=== PATIENT | male | born 1940 | race Caucasian/White ===

== ENCOUNTER 2023-06-13 15:13 | Inpatient (IN) | payer BC, MEDICARE, OTHER ==
[2023-06-13] MEDS: Sodium Chloride 0.9% 10 ML Syringe FLUSH PRN (16:07)
[2023-06-13 16:08] LABS: BASOPHILS ABSOLUTE AUTO 0.1 K/mm3 (0.0-0.2); BASOPHILS PERCENT AUTO 0.7 % (0.0-1.0); EOSINOPHILS ABSOLUTE AUTO 0.3 K/mm3 (0.0-0.4); EOSINOPHILS PERCENT AUTO 4.4 % (0.0-6.0); HEMOGLOBIN 12.1 gm/dl (14.0-18.0); IMMATURE GRAN ABSOLUTE AUTO 0.02 K/mm3 (0.00-0.05); IMMATURE GRAN PERCENT AUTO 0.3 % (0.0-0.4); LYMPHOCYTES ABSOLUTE AUTO 1.7 K/mm3 (1.0-4.8); LYMPHOCYTES PERCENT AUTO 22.5 % (24.0-44.0); MEAN CORPUSCULAR HEMOGLOBIN 30.7 pg (28.0-32.0); MEAN CORPUSCULAR HGB CONC 31.8 g/dl (32.0-36.0); MEAN CORPUSCULAR VOLUME 96.4 fl (83.0-99.0); MEAN PLATELET VOLUME 10.6 fl (9.4-12.4); MONOCYTES ABSOLUTE AUTO 0.9 K/mm3 (0.0-0.8); MONOCYTES PERCENT AUTO 12.3 % (0.0-8.0); NEUTROPHILS ABSOLUTE AUTO 4.5 K/mm3 (1.8-7.7); NEUTROPHILS PERCENT AUTO 59.8 % (41.0-71.0); PLATELET COUNT,PLT 206 K/mm3 (150-400); RED BLOOD CELL COUNT 3.94 M/mm3 (4.52-5.90); WHITE BLOOD CELL COUNT,WBC 7.56 K/mm3 (3.9-11.3)
[2023-06-13 16:40] LABS: A/G RATIO 0.5 (1-2); ALBUMIN 1.8 g/dl (3.4-5.0); ANION GAP 16.9 (5-15); BILIRUBIN TOTAL 0.5 mg/dL (0.2-1.0); BUN/CREATININE RATIO 9.2 (14-18); CALCIUM 8.1 mg/dL (8.5-10.1); CREATININE 3.7 mg/dL (0.7-1.3); EST CRCL DRUG DOSING (CG) 15.35 mL/min; POTASSIUM,K 4.9 mEq/L (3.5-5.1); PROTEIN TOTAL,TP 5.5 g/dl (6.4-8.2)
[2023-06-13] MEDS ORDERED: Sodium Chloride 0.9% 10 ML Syringe FLUSH PRN (17:31)
[2023-06-13] MEDS ORDERED: oxyCODONE 5 MG Tab PO PRN (17:31)
[2023-06-13] MEDS ORDERED: Acetaminophen 325 MG Tab PO PRN (17:31)
[2023-06-13] MEDS: Insulin Regular, Human 100 Units/ML 3 ML Vial SUBCUT SCH (18:17)
[2023-06-13] MEDS: Heparin Sodium 5,000 Units/ML Vial SUBCUT SCH (21:01)
[2023-06-13] MEDS: Furosemide 20 MG/2 ML VIAL IVPUSH ONE (22:31)
[2023-06-14 00:50] LABS: APPEARANCE,URINE CLEAR (Clear); BILIRUBIN,URINE NEGATIVE (Negative); COLOR,URINE YELLOW (Yellow); GLUCOSE,URINE TRACE (Negative); KETONES,URINE NEGATIVE (Negative); LEUKOCYTE ESTERASE,URINE NEGATIVE (Negative); NITRITE,URINE NEGATIVE (Negative); OCCULT BLOOD,URINE 2+ (Negative); PROTEIN,URINE 3+ (Negative); UROBILINOGEN,URINE 0.2 (0.2-1.0)
[2023-06-14 01:54] LABS: AMORPHOUS SEDIMENT,URINE FEW /hpf (NOT SEEN); BACTERIA,URINE MODERATE /hpf (FEW); EPITHELIAL CELLS,URINE 0-5 /hpf (0-5); FINE GRANULAR CASTS,URINE 0-5 /lpf (0-5); HYALINE CASTS,URINE 0-5 /lpf (0-5); MUCUS,URINE RARE /hpf (FEW); RBC,URINE 0-5 /hpf (0-5)
[2023-06-14 05:39] LABS: BASOPHILS PERCENT AUTO 0.5 % (0.0-1.0); EOSINOPHILS ABSOLUTE AUTO 0.5 K/mm3 (0.0-0.4); EOSINOPHILS PERCENT AUTO 6.4 % (0.0-6.0); HEMATOCRIT 37.3 % (42.0-52.0); HEMOGLOBIN 11.8 gm/dl (14.0-18.0); IMMATURE GRAN ABSOLUTE AUTO 0.03 K/mm3 (0.00-0.05); IMMATURE GRAN PERCENT AUTO 0.4 % (0.0-0.4); LYMPHOCYTES ABSOLUTE AUTO 2.1 K/mm3 (1.0-4.8); LYMPHOCYTES PERCENT AUTO 27.2 % (24.0-44.0); MEAN CORPUSCULAR HEMOGLOBIN 30.2 pg (28.0-32.0); MEAN CORPUSCULAR HGB CONC 31.6 g/dl (32.0-36.0); MEAN CORPUSCULAR VOLUME 95.4 fl (83.0-99.0); MEAN PLATELET VOLUME 10.9 fl (9.4-12.4); NEUTROPHILS PERCENT AUTO 52.5 % (41.0-71.0); PLATELET COUNT,PLT 189 K/mm3 (150-400); RED BLOOD CELL COUNT 3.91 M/mm3 (4.52-5.90); WHITE BLOOD CELL COUNT,WBC 7.61 K/mm3 (3.9-11.3)
[2023-06-14 05:56] LABS: A/G RATIO 0.5 (1-2); ALBUMIN 1.7 g/dl (3.4-5.0); ANION GAP 16.3 (5-15); BILIRUBIN TOTAL 0.5 mg/dL (0.2-1.0); BUN/CREATININE RATIO 10.3 (14-18); CREATININE 3.4 mg/dL (0.7-1.3); EST CRCL DRUG DOSING (CG) 16.7 mL/min; POTASSIUM,K 4.3 mEq/L (3.5-5.1); PROTEIN TOTAL,TP 5.5 g/dl (6.4-8.2)
[2023-06-14] MEDS: Torsemide 20 MG Tab PO SCH (08:32)
[2023-06-14] MEDS: Losartan 25 MG Tab PO SCH (08:33)
[2023-06-14] MEDS: amLODIPine 10 MG Tab PO SCH (08:33)
[2023-06-14] MEDS: Aspirin 81 MG Tab.EC PO SCH (08:34)
[2023-06-14] MEDS: Bumetanide 1 MG/4 ML MDV IVPUSH ONE (10:47)
[2023-06-14] MEDS: Bumetanide 1 MG/4 ML MDV IVPUSH SCH (15:09)
[2023-06-14] MEDS: GLIPIZIDE 10 MG PO SCH (16:02)
[2023-06-14] MEDS: guaiFENesin/Dextromethorphan 100-10 MG/5 ML Soln 5 ML Cup PO PRN (21:34)
[2023-06-15] MEDS: Benzocaine/Cetylpyridinium/Menthol Lozenge MUCMEM PRN (00:22)
[2023-06-15 05:53] LABS: BASOPHILS PERCENT AUTO 0.5 % (0.0-1.0); EOSINOPHILS ABSOLUTE AUTO 0.4 K/mm3 (0.0-0.4); EOSINOPHILS PERCENT AUTO 5.5 % (0.0-6.0); HEMATOCRIT 36.6 % (42.0-52.0); HEMOGLOBIN 11.6 gm/dl (14.0-18.0); IMMATURE GRAN ABSOLUTE AUTO 0.03 K/mm3 (0.00-0.05); IMMATURE GRAN PERCENT AUTO 0.4 % (0.0-0.4); LYMPHOCYTES ABSOLUTE AUTO 1.5 K/mm3 (1.0-4.8); LYMPHOCYTES PERCENT AUTO 20.1 % (24.0-44.0); MEAN CORPUSCULAR HEMOGLOBIN 30.3 pg (28.0-32.0); MEAN CORPUSCULAR HGB CONC 31.7 g/dl (32.0-36.0); MEAN CORPUSCULAR VOLUME 95.6 fl (83.0-99.0); MONOCYTES ABSOLUTE AUTO 0.9 K/mm3 (0.0-0.8); MONOCYTES PERCENT AUTO 11.4 % (0.0-8.0); NEUTROPHILS ABSOLUTE AUTO 4.7 K/mm3 (1.8-7.7); NEUTROPHILS PERCENT AUTO 62.1 % (41.0-71.0); PLATELET COUNT,PLT 177 K/mm3 (150-400); RED BLOOD CELL COUNT 3.83 M/mm3 (4.52-5.90); WHITE BLOOD CELL COUNT,WBC 7.48 K/mm3 (3.9-11.3)
[2023-06-15 06:08] LABS: A/G RATIO 0.4 (1-2); ALBUMIN 1.6 g/dl (3.4-5.0); ANION GAP 14.5 (5-15); BILIRUBIN TOTAL 0.5 mg/dL (0.2-1.0); CREATININE 3.4 mg/dL (0.7-1.3); EST CRCL DRUG DOSING (CG) 16.7 mL/min; POTASSIUM,K 4.5 mEq/L (3.5-5.1); PROTEIN TOTAL,TP 5.2 g/dl (6.4-8.2)
[2023-06-15] MEDS: Bumetanide 1 MG/4 ML MDV IVPUSH SCH ×2 (06:22→14:30)
[2023-06-16 05:58] LABS: A/G RATIO 0.5 (1-2); ALBUMIN 1.7 g/dl (3.4-5.0); ANION GAP 12.4 (5-15); BILIRUBIN TOTAL 0.6 mg/dL (0.2-1.0); CALCIUM 8.3 mg/dL (8.5-10.1); CREATININE 3.4 mg/dL (0.7-1.3); EST CRCL DRUG DOSING (CG) 16.7 mL/min; MAGNESIUM 1.8 mg/dL (1.8-2.4); POTASSIUM,K 4.4 mEq/L (3.5-5.1); PROTEIN TOTAL,TP 5.3 g/dl (6.4-8.2)
[2023-06-16 06:02] LABS: BASOPHILS PERCENT AUTO 0.6 % (0.0-1.0); EOSINOPHILS ABSOLUTE AUTO 0.4 K/mm3 (0.0-0.4); EOSINOPHILS PERCENT AUTO 6.4 % (0.0-6.0); HEMATOCRIT 35.7 % (42.0-52.0); HEMOGLOBIN 11.5 gm/dl (14.0-18.0); IMMATURE GRAN ABSOLUTE AUTO 0.03 K/mm3 (0.00-0.05); IMMATURE GRAN PERCENT AUTO 0.5 % (0.0-0.4); LYMPHOCYTES ABSOLUTE AUTO 1.8 K/mm3 (1.0-4.8); LYMPHOCYTES PERCENT AUTO 28.7 % (24.0-44.0); MEAN CORPUSCULAR HEMOGLOBIN 30.7 pg (28.0-32.0); MEAN CORPUSCULAR HGB CONC 32.2 g/dl (32.0-36.0); MEAN CORPUSCULAR VOLUME 95.2 fl (83.0-99.0); MEAN PLATELET VOLUME 11.1 fl (9.4-12.4); MONOCYTES ABSOLUTE AUTO 0.9 K/mm3 (0.0-0.8); NEUTROPHILS ABSOLUTE AUTO 3.2 K/mm3 (1.8-7.7); NEUTROPHILS PERCENT AUTO 49.8 % (41.0-71.0); PLATELET COUNT,PLT 179 K/mm3 (150-400); RED BLOOD CELL COUNT 3.75 M/mm3 (4.52-5.90); WHITE BLOOD CELL COUNT,WBC 6.41 K/mm3 (3.9-11.3)
[2023-06-17 02:35] LABS: CREATININE,URINE RAND 46.1 mg/dL (30.0-125.0); MICROALBUMIN CREAT RATIO,UR 11732.9 mg/g (0-30); MICROALBUMIN,URINE RANDOM 5408.9 mg/L (1.3-20.0)
[2023-06-17 06:34] LABS: A/G RATIO 0.5 (1-2); ALBUMIN 1.8 g/dl (3.4-5.0); ANION GAP 14.1 (5-15); BILIRUBIN TOTAL 0.6 mg/dL (0.2-1.0); BUN/CREATININE RATIO 12.4 (14-18); CALCIUM 8.7 mg/dL (8.5-10.1); CREATININE 3.3 mg/dL (0.7-1.3); EST CRCL DRUG DOSING (CG) 17.21 mL/min; MAGNESIUM 1.9 mg/dL (1.8-2.4); POTASSIUM,K 4.1 mEq/L (3.5-5.1); PROTEIN TOTAL,TP 5.7 g/dl (6.4-8.2)
[2023-06-17 06:38] LABS: BASOPHILS ABSOLUTE AUTO 0.1 K/mm3 (0.0-0.2); BASOPHILS PERCENT AUTO 0.6 % (0.0-1.0); EOSINOPHILS ABSOLUTE AUTO 0.5 K/mm3 (0.0-0.4); HEMATOCRIT 38.8 % (42.0-52.0); HEMOGLOBIN 12.5 gm/dl (14.0-18.0); IMMATURE GRAN ABSOLUTE AUTO 0.02 K/mm3 (0.00-0.05); IMMATURE GRAN PERCENT AUTO 0.2 % (0.0-0.4); LYMPHOCYTES ABSOLUTE AUTO 2.1 K/mm3 (1.0-4.8); LYMPHOCYTES PERCENT AUTO 25.1 % (24.0-44.0); MEAN CORPUSCULAR HEMOGLOBIN 30.2 pg (28.0-32.0); MEAN CORPUSCULAR HGB CONC 32.2 g/dl (32.0-36.0); MEAN CORPUSCULAR VOLUME 93.7 fl (83.0-99.0); MEAN PLATELET VOLUME 11.4 fl (9.4-12.4); MONOCYTES ABSOLUTE AUTO 0.9 K/mm3 (0.0-0.8); NEUTROPHILS ABSOLUTE AUTO 4.8 K/mm3 (1.8-7.7); NEUTROPHILS PERCENT AUTO 57.1 % (41.0-71.0); PLATELET COUNT,PLT 228 K/mm3 (150-400); RED BLOOD CELL COUNT 4.14 M/mm3 (4.52-5.90); WHITE BLOOD CELL COUNT,WBC 8.35 K/mm3 (3.9-11.3)
[2023-06-17] MEDS: Bumetanide 1 MG Tab PO SCH ×2 (08:46→13:19)
[2023-06-17] MEDS: Multivitamins with Minerals/Folic Acid/Lutein/Zeaxanth Tab PO SCH (09:28)
[2023-06-17] MEDS: Polyethylene Glycol 3350 Powder 17 GM Packet PO PRN (09:28)
[2023-06-17] MEDS: Insulin Lispro 100 Unit/ML 3 ML KwikPen SUBCUT SCH (17:37)
[2023-06-17] MEDS: Rosuvastatin 10 MG Tab PO SCH (20:58)
[2023-06-17] MEDS: Docusate Sodium 100 MG Cap PO PRN (21:54)
[2023-06-18 07:11] LABS: A/G RATIO 0.5 (1-2); ALBUMIN 1.6 g/dl (3.4-5.0); ANION GAP 14.9 (5-15); BILIRUBIN TOTAL 0.4 mg/dL (0.2-1.0); BUN/CREATININE RATIO 11.1 (14-18); CALCIUM 8.3 mg/dL (8.5-10.1); CREATININE 3.7 mg/dL (0.7-1.3); EST CRCL DRUG DOSING (CG) 15.35 mL/min; MAGNESIUM 1.9 mg/dL (1.8-2.4); POTASSIUM,K 3.9 mEq/L (3.5-5.1); PROTEIN TOTAL,TP 5.1 g/dl (6.4-8.2)
[2023-06-18] MEDS ORDERED: Losartan 25 MG Tab PO SCH (09:00)
[2023-06-18] MEDS: Docusate Sodium 100 MG Cap PO SCH (10:56)
[2023-06-18] MEDS: Polyethylene Glycol 3350 Powder 17 GM Packet PO SCH (10:57)
== END 2023-06-18 12:36 | DRG 291 ==
LOC: JD.ED 15:13 → JD.MS 17:31
PROVIDERS: ADMIT Internal Medicine; ATTEND Internal Medicine
DX: I13.0 Hypertensive heart and chronic kidney disease with heart failure and stage 1 through stage 4 chronic kidney disease, or unspecified chronic kidney disease (principal); I50.9 Heart failure, unspecified; I50.33 Acute on chronic diastolic (congestive) heart failure; N18.4 Chronic kidney disease, stage 4 (severe); E11.22 Type 2 diabetes mellitus with diabetic chronic kidney disease; Z66 Do not resuscitate; E88.09 Other disorders of plasma-protein metabolism, not elsewhere classified; E66.9 Obesity, unspecified; E78.00 Pure hypercholesterolemia, unspecified; E11.21 Type 2 diabetes mellitus with diabetic nephropathy; M54.9 Dorsalgia, unspecified; G89.29 Other chronic pain; Z88.8 Allergy status to other drugs, medicaments and biological substances; Z79.4 Long term (current) use of insulin; Z79.84 Long term (current) use of oral hypoglycemic drugs; Z79.899 Other long term (current) drug therapy; Z68.33 Body mass index [BMI] 33.0-33.9, adult; Z79.82 Long term (current) use of aspirin; Z68.35 Body mass index [BMI] 35.0-35.9, adult; E78.5 Hyperlipidemia, unspecified
CPT/HCPCS: 36415; 71045; 80053; 81001; 83880; 84484; 85025; 93005; 99284; J3490; 82043; 82947; 83735; 93010; 93307; 97161-GP; 99285; A9270-GY; J1644; J1940

== ENCOUNTER 2024-07-23 10:30 | Emergency (ER) | payer OTHER ==
[2024-07-23] MEDS: Furosemide 100 MG/10 ML SDV IVPUSH ONE (11:08)
[2024-07-23 11:14] LABS: BASOPHILS ABSOLUTE AUTO 0.1 K/mm3 (0.0-0.2); BASOPHILS PERCENT AUTO 0.6 % (0.0-1.0); EOSINOPHILS PERCENT AUTO 0.3 % (0.0-6.0); HEMATOCRIT 32.8 % (42.0-52.0); IMMATURE GRAN ABSOLUTE AUTO 0.04 K/mm3 (0.00-0.05); IMMATURE GRAN PERCENT AUTO 0.4 % (0.0-0.4); LYMPHOCYTES ABSOLUTE AUTO 1.3 K/mm3 (1.0-4.8); MEAN CORPUSCULAR HEMOGLOBIN 31.3 pg (28.0-32.0); MEAN CORPUSCULAR HGB CONC 31.7 g/dl (32.0-36.0); MEAN PLATELET VOLUME 10.3 fl (9.4-12.4); MONOCYTES ABSOLUTE AUTO 0.9 K/mm3 (0.0-0.8); MONOCYTES PERCENT AUTO 9.8 % (0.0-8.0); NEUTROPHILS ABSOLUTE AUTO 6.7 K/mm3 (1.8-7.7); NEUTROPHILS PERCENT AUTO 74.9 % (41.0-71.0); RED BLOOD CELL COUNT 3.32 M/mm3 (4.52-5.90); WHITE BLOOD CELL COUNT,WBC 8.98 K/mm3 (3.9-11.3)
[2024-07-23 11:19] LABS: BASE EXCESS ARTERIAL -5.2 (-2-2.0); BICARBONATE,ARTERIAL 18.4 meq/L (22.0-26.0); O2 SATURATION ARTERIAL 97.5 % (96.0-97.0)
[2024-07-23 11:31] LABS: HEMOGLOBIN 10.4 gm/dl (14.0-18.0); MEAN CORPUSCULAR VOLUME 98.8 fl (83.0-99.0); PLATELET COUNT,PLT 334 K/mm3 (150-400)
[2024-07-23 11:35] LABS: INR 1.06; PROTHROMBIN TIME 11.2 SECONDS (9.7-12.0)
[2024-07-23 11:45] LABS: A/G RATIO 0.4 (1-2); ALBUMIN 1.6 g/dl (3.4-5.0); ANION GAP 20.5 (5-15); BILIRUBIN TOTAL 0.6 mg/dL (0.2-1.0); BUN/CREATININE RATIO 10.9 (14-18); CALCIUM 8.9 mg/dL (8.5-10.1); CREATININE 6.6 mg/dL (0.7-1.3); EST CRCL DRUG DOSING (CG) 8.45 mL/min; MAGNESIUM 3.1 mg/dL (1.8-2.4); POTASSIUM,K 3.5 mEq/L (3.5-5.1); PROTEIN TOTAL,TP 5.9 g/dl (6.4-8.2)
[2024-07-23] MEDS: Heparin Sodium 5,000 Units/ML Vial IVPUSH ONE (12:06)
[2024-07-23] MEDS: Heparin Sodium/D5W 250 ML IV SCH (12:06)
[2024-07-23 13:10] LABS: APPEARANCE,URINE SLT CLOUDY (Clear); BILIRUBIN,URINE NEGATIVE (Negative); COLOR,URINE YELLOW (Yellow); GLUCOSE,URINE 1+ (Negative); KETONES,URINE 1+ (Negative); LEUKOCYTE ESTERASE,URINE NEGATIVE (Negative); NITRITE,URINE NEGATIVE (Negative); OCCULT BLOOD,URINE 2+ (Negative); PROTEIN,URINE 3+ (Negative); UROBILINOGEN,URINE 0.2 (0.2-1.0)
[2024-07-23 13:27] LABS: RBC,URINE 0-5 /hpf (0-5)
[2024-07-23 13:28] LABS: BACTERIA,URINE FEW /hpf (FEW); MUCUS,URINE FEW /hpf (FEW); WBC,URINE 0-5 /hpf (0-5)
== END 2024-07-23 14:30 ==
LOC: JD.ED 10:30
DX: I21.4 Non-ST elevation (NSTEMI) myocardial infarction (principal); D64.9 Anemia, unspecified; N17.9 Acute kidney failure, unspecified; I11.0 Hypertensive heart disease with heart failure; I50.33 Acute on chronic diastolic (congestive) heart failure; E78.00 Pure hypercholesterolemia, unspecified; E11.9 Type 2 diabetes mellitus without complications; Z79.82 Long term (current) use of aspirin; Z79.899 Other long term (current) drug therapy; Z79.84 Long term (current) use of oral hypoglycemic drugs; Z88.8 Allergy status to other drugs, medicaments and biological substances
CPT/HCPCS: 36415; 36600; 51702; 71045; 80053; 81001; 82550; 82803; 83690; 83735; 83880; 84484; 85025; 85610; 85730; 93005; 96365; 96366; 96375; 99285; J1644; J1938; 93010